=== PATIENT | male | born 1965 | race Caucasian/White ===

== ENCOUNTER 2016-11-19 00:47 | Inpatient (IN) | payer MEDICAID ==
[~2016-11-19] VITALS: Ht 177.8 cm; Wt 84.5 kg
[2016-11-19] MEDS ORDERED: ASPIRIN 81 MG TABLET CHEW PO ONE (01:00)
[2016-11-19] MEDS ORDERED: LORazepam 1MG TABLET PO ONE (01:00)
[2016-11-19] MEDS ORDERED: SODIUM CHLORIDE FLUSH 10ML SYR IVF ONE (01:00)
[2016-11-19 01:18] LABS: HEMOGLOBIN 12.1 g/dL (13.7-18.0)
[2016-11-19 01:30] LABS: ASPARTATE AMINO TRANSFERASE 39 U/L (15-37); BLOOD UREA NITROGEN 12 mg/dL (7-18)
[2016-11-19] MEDS ORDERED: PLEASE ENTER ALLERGIES MC SCH ×2 (01:30)
[2016-11-19 01:35] LABS: IS PT STATUS REG ER OR PRE ER? YES
[2016-11-19] MEDS ORDERED: LORazepam 1MG TABLET ONE (01:41)
[2016-11-19] MEDS ORDERED: ASPIRIN 81 MG TABLET CHEW ONE (01:42)
[2016-11-19] MEDS ORDERED: SODIUM CHLORIDE 0.9% 1,000ML IVBOLUS ONE (02:00)
[2016-11-19] MEDS ORDERED: ACETAMINOPHEN 325 MG TABLET PO ONE (02:00)
[2016-11-19] MEDS ORDERED: ONDANSETRON 2MG/ML, 2ML ONE (02:41)
[2016-11-19] MEDS ORDERED: MORPHINE SULFATE 4 MG/ML, 1ML IVPush PRN (03:00)
[2016-11-19] MEDS ORDERED: ONDANSETRON 2MG/ML, 2ML IVPush ONE (03:00)
[2016-11-19] MEDS ORDERED: ONDANSETRON 2MG/ML, 2ML IVP PRN (03:00)
[2016-11-19] MEDS ORDERED: ENOXAPARIN 40 MG/0.4 ML SQ SCH (03:00)
[2016-11-19] MEDS ORDERED: METOCLOPRAMIDE 5 MG/ML, 2ML IVPush SCH (03:00)
[2016-11-19] MEDS ORDERED: THIAMINE 200 MG in SODIUM CHLORIDE 0.9% 50 ML IV ONE (03:00)
[2016-11-19] MEDS ORDERED: POTASSIUM CHLORIDE 40 MEQ in SODIUM CHLORIDE 0.9% 500 ML IV ONE (03:00)
[2016-11-19] MEDS ORDERED: METOCLOPRAMIDE 5 MG/ML, 2ML ONE (03:37)
[2016-11-19] MEDS ORDERED: ENOXAPARIN 40 MG/0.4 ML ONE (03:37)
[2016-11-19] MEDS ORDERED: PANTOPRAZOLE 40 MG IV ONE (03:37)
[2016-11-19] MEDS: PANTOPRAZOLE 40 MG IV IVPush SCH ×2 (03:40→15:04)
[2016-11-19 03:42] LABS: IS PT STATUS REG ER OR PRE ER? YES
[2016-11-19 05:12] VITALS: BP 109/72
[2016-11-19] MEDS ORDERED: HEPARIN 5,000 UNITS/ML, 1ML IV PRN (05:30)
[2016-11-19] MEDS ORDERED: HEPARIN 25,000 UNITS/500ML PMX 500 ML IV PRN (05:30)
[2016-11-19] MEDS ORDERED: HEPARIN 5,000 UNITS/ML, 1ML IV ONE (05:30)
[2016-11-19] MEDS: LORazepam 2 MG/ML, 1ML IVPush PRN ×2 (05:52→15:01)
[2016-11-19] MEDS: FOLIC ACID 1 MG, THIAMINE 100 MG, MVI ADULT 10 ML in DEXTROSE 5% 1,000 ML IV SCH (06:05)
[2016-11-19 07:02] VITALS: BP 98/65
[2016-11-19 10:00] LABS: IS PT STATUS REG ER OR PRE ER? NO
[2016-11-19] MEDS ORDERED: MAALOX/HYOSCYAMINE/LIDOCAINE 45 ML BOTTLE PO SCH (10:00)
[2016-11-19 12:06] LABS: IS PT STATUS REG ER OR PRE ER? NO
[2016-11-19] MEDS ORDERED: REGADENOSON 0.4 MG/5 ML SYRINGE ONE (12:48)
[2016-11-19 13:00] VITALS: BP 112/78
[2016-11-19 14:25] VITALS: BP 128/87
[2016-11-19 15:34] LABS: IS PT STATUS REG ER OR PRE ER? NO
[2016-11-19] MEDS: INSULIN REGULAR 100 UNITS/ML, 3ML VIAL SQ-INSULIN SCH ×2 (18:20→21:31)
[2016-11-19] MEDS ORDERED: LORazepam 1MG TABLET PO PRN ×3 (18:30)
[2016-11-19] MEDS ORDERED: LORazepam 2 MG/ML, 1ML IV PRN ×2 (18:30)
[2016-11-19] MEDS ORDERED: LORazepam 0.5MG TABLET PO PRN (18:30)
[2016-11-19] MEDS: HEPARIN 5,000 UNITS/ML, 1ML SQ SCH (19:11)
[2016-11-19 19:45] VITALS: BP 111/75
[2016-11-19] MEDS: LORazepam 2 MG/ML, 1ML IV PRN (21:13)
[2016-11-20 02:55] VITALS: BP 116/81
[2016-11-20] MEDS: HEPARIN 5,000 UNITS/ML, 1ML SQ SCH ×3 (03:36→20:56)
[2016-11-20] MEDS: FOLIC ACID 1 MG, THIAMINE 100 MG, MVI ADULT 10 ML in DEXTROSE 5% 1,000 ML IV SCH (03:36)
[2016-11-20] MEDS: PANTOPRAZOLE 40 MG IV IVPush SCH ×2 (04:03→13:15)
[2016-11-20] MEDS: LORazepam 2 MG/ML, 1ML IV PRN ×5 (04:04→23:36)
[2016-11-20 05:37] LABS: HEMOGLOBIN 11.6 g/dL (13.7-18.0)
[2016-11-20 05:43] LABS: BLOOD UREA NITROGEN 9 mg/dL (7-18)
[2016-11-20 05:47] LABS: ASPARTATE AMINO TRANSFERASE 27 U/L (15-37)
[2016-11-20] MEDS: ASPIRIN 81 MG TABLET EC PO SCH (06:00)
[2016-11-20] MEDS ORDERED: ASPIRIN 81 MG TABLET EC PO SCH (06:00)
[2016-11-20 07:11] VITALS: BP 116/77
[2016-11-20] MEDS: INSULIN REGULAR 100 UNITS/ML, 3ML VIAL SQ-INSULIN SCH ×4 (08:27→20:58)
[2016-11-20 13:18] VITALS: BP 118/83
[2016-11-20 20:00] VITALS: BP 105/76
[2016-11-20] MEDS: OXYcodone IR 5MG TABLET PO PRN (23:36)
[2016-11-21] MEDS: PANTOPRAZOLE 40 MG IV IVPush SCH ×2 (03:38→14:28)
[2016-11-21] MEDS: FOLIC ACID 1 MG, THIAMINE 100 MG, MVI ADULT 10 ML in DEXTROSE 5% 1,000 ML IV SCH (03:38)
[2016-11-21 03:48] VITALS: BP 124/77
[2016-11-21] MEDS: OXYcodone IR 5MG TABLET PO PRN ×3 (03:49→22:10)
[2016-11-21 06:05] LABS: ASPARTATE AMINO TRANSFERASE 22 U/L (15-37); BLOOD UREA NITROGEN 8 mg/dL (7-18)
[2016-11-21] MEDS: ASPIRIN 81 MG TABLET EC PO SCH (06:20)
[2016-11-21] MEDS: LORazepam 2 MG/ML, 1ML IV PRN ×2 (06:20→14:47)
[2016-11-21 06:24] LABS: HEMOGLOBIN 12.6 g/dL (13.7-18.0)
[2016-11-21] MEDS: HEPARIN 5,000 UNITS/ML, 1ML SQ SCH ×3 (06:24→22:01)
[2016-11-21 06:49] VITALS: BP 118/74
[2016-11-21] MEDS: INSULIN REGULAR 100 UNITS/ML, 3ML VIAL SQ-INSULIN SCH ×4 (08:13→22:10)
[2016-11-21] MEDS: SODIUM CHLORIDE 0.9% 1,000 ML IV SCH ×2 (10:35→19:03)
[2016-11-21] MEDS: CHLORDIAZEPOXIDE 10 MG CAPSULE PO PRN ×2 (10:35→22:01)
[2016-11-21 12:43] VITALS: BP 90/52
[2016-11-21 14:31] VITALS: BP 109/57
[2016-11-21 18:37] VITALS: BP 104/66
[2016-11-22] MEDS: LORazepam 2 MG/ML, 1ML IV PRN ×3 (01:01→21:27)
[2016-11-22 01:45] VITALS: BP 122/77
[2016-11-22] MEDS: PANTOPRAZOLE 40 MG IV IVPush SCH ×2 (05:03→16:35)
[2016-11-22] MEDS: OXYcodone IR 5MG TABLET PO PRN ×2 (05:04→16:34)
[2016-11-22] MEDS: SODIUM CHLORIDE 0.9% 1,000 ML IV SCH ×3 (05:04→21:31)
[2016-11-22] MEDS: ASPIRIN 81 MG TABLET EC PO SCH (05:04)
[2016-11-22] MEDS: HEPARIN 5,000 UNITS/ML, 1ML SQ SCH ×3 (05:04→21:31)
[2016-11-22 07:36] VITALS: BP 110/77
[2016-11-22] MEDS: LORazepam 1MG TABLET PO PRN (08:28)
[2016-11-22] MEDS: INSULIN REGULAR 100 UNITS/ML, 3ML VIAL SQ-INSULIN SCH ×4 (08:28→21:39)
[2016-11-22] MEDS: IBUPROFEN 200 MG TABLET PO PRN (12:25)
[2016-11-22] MEDS: NICOTINE 7 MG/24 HR PATCH.TD24 TD SCH (13:33)
[2016-11-22 13:43] VITALS: BP 101/68
[2016-11-22 18:49] VITALS: BP 114/81
[2016-11-23] MEDS: LORazepam 2 MG/ML, 1ML IV PRN ×3 (01:03→21:20)
[2016-11-23 01:55] VITALS: BP 101/67
[2016-11-23] MEDS: PANTOPRAZOLE 40 MG IV IVPush SCH ×2 (02:20→16:48)
[2016-11-23] MEDS: SODIUM CHLORIDE 0.9% 1,000 ML IV SCH ×3 (05:42→23:24)
[2016-11-23] MEDS: ASPIRIN 81 MG TABLET EC PO SCH (05:43)
[2016-11-23] MEDS: HEPARIN 5,000 UNITS/ML, 1ML SQ SCH ×3 (05:45→21:19)
[2016-11-23] MEDS: INSULIN REGULAR 100 UNITS/ML, 3ML VIAL SQ-INSULIN SCH ×4 (07:00→21:36)
[2016-11-23 07:20] VITALS: BP 125/87
[2016-11-23 08:48] LABS: BLOOD UREA NITROGEN 9 mg/dL (7-18)
[2016-11-23] MEDS: OXYcodone IR 5MG TABLET PO PRN ×2 (11:49→23:25)
[2016-11-23] MEDS: IBUPROFEN 200 MG TABLET PO PRN (11:50)
[2016-11-23] MEDS: NICOTINE 7 MG/24 HR PATCH.TD24 TD SCH (11:51)
[2016-11-23 13:30] VITALS: BP 103/71
[2016-11-23 18:25] VITALS: BP 109/75
[2016-11-24 01:04] VITALS: BP 124/84
[2016-11-24] MEDS: HEPARIN 5,000 UNITS/ML, 1ML SQ SCH (04:49)
[2016-11-24] MEDS: LORazepam 1MG TABLET PO PRN (04:56)
[2016-11-24] MEDS: PANTOPRAZOLE 40 MG IV IVPush SCH (04:57)
[2016-11-24] MEDS: ASPIRIN 81 MG TABLET EC PO SCH (04:57)
[2016-11-24 05:17] LABS: BLOOD UREA NITROGEN 10 mg/dL (7-18)
[2016-11-24] MEDS: INSULIN REGULAR 100 UNITS/ML, 3ML VIAL SQ-INSULIN SCH (07:00)
[2016-11-24 08:58] VITALS: BP 117/76
[2016-11-24] MEDS: OXYcodone IR 5MG TABLET PO PRN (09:23)
[2016-11-24] MEDS ORDERED: ASPI-621 PO (09:54)
[2016-11-24] MEDS ORDERED: OMEP-110 PO (09:54)
[2016-11-25 20:06] LABS: HGB A1C 6.4 %Hb (.)
== END 2016-11-24 10:13 | disposition home or self-care (01) | DRG 896 ==
LOC: ED 02:45 → EDIP 02:49 → 5SO 03:45 → 4WST 11-21 23:07
PROVIDERS: ADMIT Internal Medicine; ATTEND Internal Medicine
DX: F10.229 Alcohol dependence with intoxication, unspecified (principal); E43 Unspecified severe protein-calorie malnutrition; K56.7 Ileus, unspecified; E87.1 Hypo-osmolality and hyponatremia; F10.239 Alcohol dependence with withdrawal, unspecified; R07.89 Other chest pain; E11.65 Type 2 diabetes mellitus with hyperglycemia; D63.8 Anemia in other chronic diseases classified elsewhere; E87.6 Hypokalemia; K29.20 Alcoholic gastritis without bleeding; F17.210 Nicotine dependence, cigarettes, uncomplicated; M19.90 Unspecified osteoarthritis, unspecified site; Y90.6 Blood alcohol level of 120-199 mg/100 ml; Z59.0 Homelessness; Z68.26 Body mass index [BMI] 26.0-26.9, adult; Z79.82 Long term (current) use of aspirin
CPT/HCPCS: 36415; 70450; 71010; 78452; 80048; 80053; 80061; 80307; 82550; 82962; 83036; 83690; 83735; 83880; 84378; 84443; 84484; 84550; 85025; 85379; 85520; 85610; 85730; 93005; 93017; 93306; 96372; 96374; 96375; J1644; J1650; J1815; J2405; J2785; J3411; J3480; J7070; A9502; C9113; C9898; J2060; J2765; J7030; J7040